=== PATIENT | female | born 1970 | race Caucasian/White ===

== ENCOUNTER → 2020-05-06 14:00 | Outpatient (CLI) | payer BC, SELFPAY ==
--- NOTE | ~2020-05-06 | MM_ITS ---
EXAMINATION: MM screening [facility] BI w justyn HISTORY: Screening mammogram TECHNIQUE: Craniocaudal and mediolateral oblique 3-D tomosynthesis images were obtained and synthetic 2-D images were generated. CAD analysis was submitted and interpreted. COMPARISON: 03/07/2018, 04/04/2017, 03/16/2017, 03/04/2017 BREAST PARENCHYMAL COMPOSITION: The breasts are heterogeneously dense, which may obscure small masses . FINDINGS: Biopsy markers are noted in the upper left breast. Bilateral breast masses are also seen wh ich have decreased in size, consistent with benign findings. Scattered benign-appearing calcification s are present. There is no evidence of suspicious mass, calcification, or architectural distortion to suggest malignancy in either breast. There has been no suspicious interval change. IMPRESSION: 1. No mammographic evidence of malignancy. 2. Recommend routine screening mammography in one year. BI-RADS Category 2: Benign finding(s). Reviewed, dictated and finalized at location A.
== END ==
PROVIDERS: PCP Internal Medicine; Visit Provider Nurse Practitioner Obstetrics & Gynecology
DX: Z12.31 Encounter for screening mammogram for malignant neoplasm of breast (principal)
CPT/HCPCS: 77063; 77067

== ENCOUNTER → 2021-06-15 15:15 | Outpatient (CLI) | payer BC, SELFPAY ==
--- NOTE | ~2021-06-15 | MM_ITS ---
EXAMINATION: MM screening [facility] BI w justyn HISTORY: Screening mammogram TECHNIQUE: Craniocaudal and mediolateral oblique 3-D tomosynthesis images were obtained and synthetic 2-D images were generated. CAD analysis was submitted and interpreted. COMPARISON: 05/06/2020, 03/07/2018 bilateral digital screening mammogram examinations BREAST PARENCHYMAL COMPOSITION: The breasts are heterogeneously dense, which may obscure small masses . FINDINGS: There are 2 biopsy markers on the left; history of prior bilateral benign breast biopsies. There are grouped microcalcifications in the posterior lower mid right breast. Diagnostic right mammo gram with magnification views is recommended. There are occasional scattered bilateral benign-appearing circumscribed opacities. IMPRESSION: 1. Grouped microcalcifications in the posterior mid lower right breast 2. Diagnostic right mammogram with magnification views is recommended BI-RADS Category 0: Incomplete: Needs additional imaging evaluation. Reviewed, dictated and finalized at location A. OLL BENEFITS ADMINISTRATOR
== END ==
PROVIDERS: Visit Provider Nurse Practitioner Obstetrics & Gynecology
DX: Z12.31 Encounter for screening mammogram for malignant neoplasm of breast (principal); R92.8 Other abnormal and inconclusive findings on diagnostic imaging of breast
CPT/HCPCS: 77063; 77067

== ENCOUNTER → 2021-07-20 09:48 | Outpatient (CLI) | payer BC, SELFPAY ==
--- NOTE | ~2021-07-20 | MMUS_ITS ---
EXAMINATION: MM diagnostic mammo unilat RT, US breast RT limited HISTORY: Right breast calcifications on screening mammogram TECHNIQUE: Additional mammographic images of the right breast were performed. CAD analysis was submit mary and interpreted. High resolution limited right breast ultrasound was performed. COMPARISON: 07/05/2021, 05/06/2020, 03/07/2018 BREAST PARENCHYMAL COMPOSITION: The breasts are heterogeneously dense, which may obscure small masses . FINDINGS: MAMMOGRAPHIC FINDINGS: There are grouped fine pleomorphic calcifications in the posterior third of the breast at the 6:00 lo cation 9.5 cm from the nipple just below the nipple axis. ULTRASOUND: There is no evidence of focal abnormal solid or cystic mass in the vicinity of the mammographic findi ng in question. IMPRESSION: 1. Indeterminate right breast calcifications. 2. Stereotactic biopsy is recommended. BI-RADS category 4, suspicious findings. Reviewed, dictated and finalized at location A. CONTROL SYSTEM INSTALLER IMPRESSION: 1. Indeterminate right breast calcifications. 2. Stereotactic biopsy is recommended. BI-RADS category 4, suspicious findings.
== END ==
PROVIDERS: Visit Provider Nurse Practitioner Obstetrics & Gynecology
DX: N63.15 Unspecified lump in the right breast, overlapping quadrants (principal)
CPT/HCPCS: 76642; 77065

== ENCOUNTER 2025-03-08 07:45 | Outpatient (CLI) | payer OTHER, SELFPAY ==
--- NOTE | ~2025-03-08 | XR_ITS ---
EXAMINATION: XR chest 2V Exam Date/Time: 03/08/2025 7:55 CDT HISTORY: R07.9 - Chest pain, unspecified Comparison: None. RESULT: Lines, tubes, and devices: None. Lungs and pleura: Clear. Cardiomediastinal silhouette: Normal. Other: No acute osseous or upper abdominal finding. IMPRESSION: No acute cardiopulmonary process. Reviewed, dictated and finalized at location K.
--- OUTSIDE RECORDS SUMMARY | 2025-03-08 07:48 | XMS_ITS | Clinical Summary ---
Author Organization [facility] [address] Address [address] [place] [address] Care Team Providers Care Coffee Sampler Name Role Phone Zachary Ortega MD Primary Care Provider [phone] Allergies No known active allergies Medications atorvastatin (LIPITOR) 20 mg tablet atorvastatin 20 mg tablet TAKE 1 TABLET BY MOUTH EVERY DAY Active citalopram (CeleXA) 40 mg tablet citalopram 40 mg tablet TAKE 1 TABLET BY MOUTH DAILY 8 Active clindamycin-brennen oyl peroxide (Onexton) 1.2 %(1 % base) -3.75 % gel Onexton 1.2 % (1 % base)-3.75 % topical gel with pump Active neomycin-polymyx in-HC (CORTISPORIN) otic solution INSTILL 4 DROPS INTO RIGHT EAR EVERY 6 HOURS 2 Active tretinoin microspheres (Retin-A Micro Pump) 0.08 % gel with pump Retin-A Micro Pump 0.08 % topical gel Active Active Problems No known active problems Family History Medical History Relation Name Comments No Known Problems Father No Known Problems Mother Relation Name Status Comments Father Mother Social History Tobacco Use Types Packs/Day Years Used Date Smoking Tobacco: Former Cigarettes Smokeless Tobacco: Never Tobacco Cessation:Counseling Given: Not Answered Personal Safety Answer Date Recorded Getting School Help Needed Not on file 08/13 Comments Unknown Sex and Gender Information Value Date Recorded Sex Assigned at Not on file Legal Sex Female 1:52 PM ADVERTISING WRITER Gender Identity Not on file Sexual Orientation Not on file Obstetrics History Last Filed Vital Signs Vital Sign Reading Time Taken Comments Blood Pressure - - Pulse - - Temperature - - Respiratory Rate 18 07/07/2022 3:25 PM ADVERTISING WRITER Oxygen Saturation - - Inhaled Oxygen Concentration - - Weight 54.4 kg (120 lb) 07/07/2022 3:25 PM ADVERTISING WRITER Height 157.5 cm (5' 2) 07/07/2022 3:25 PM ADVERTISING WRITER Body Mass Index 21.95 07/07/2022 3:25 PM ADVERTISING WRITER Plan of Treatment Health Maintenance Due Date Last Done Comments Breast Cancer Screening-Mammogram 1969 Cervical Cancer Screening 1969 Colon Cancer Screening-Colonoscopy 1969 Depression Screening 1969 Hepatitis C Screening 1969 DTaP/Tdap/Td Vaccine (1 - Tdap) 1980 Hepatitis B Screening 12/25/1987 Regular Well Visit/Exam 18-64 12/25/1987 Zoster Vaccine (1 of 2) 12/25/2019 Covid-19 Vaccine (3 - 2023-2 5 season) 2024 11/26/2020, 11/05/2020 Influenza Vaccine (#1) 2025 Pneumococcal vaccine <65 Aged Out No longer eligible based on patient's age to complete this topic Insurance [employer] Care Teams Coffee Sampler Relationship Specialty Start Date End Date Zachary Ortega MD [address] [facility] [address] [place] [address] PCP - General Internal Medicine 07/06/22
--- OUTSIDE RECORDS SUMMARY | 2025-03-08 07:48 | XMS_ITS | Encounter Summary ---
Author Organization [facility] Address [address] [place] [address] Care Team Providers Care Veneer Marker Name Role Phone Zachary Ortega DO Primary Care Provider Encounter Details Date Type Department Care Team (Latest Contact Info) Description 07/31/1999 Inpatient Historical HIS PATIENT IN A BED Radha Arreola MD [address] [place] [id number] Mild hyperemesis gravidarum, antepartum (Primary Dx) Social History Tobacco Use Types Packs/Day Years Used Date Smoking Tobacco: Never Assessed Comments Unknown Sex and Gender Information Value Date Recorded Sex Assigned at Not on file Legal Sex Female 3:00 AM CROP PRODUCTION ADVISOR Gender Identity Not on file Sexual Orientation Not on file documented as of this encounter Plan of Treatment Not on file documented as of this encounter Visit Diagnoses Diagnosis Mild hyperemesis gravidarum, antepartum- Primary documented in this encounter Care Teams Veneer Marker Relationship Specialty Start Date End Date Zachary Ortega DO [address] [place] [address] PCP - General Internal Medicine 12/28/17 documented as of this encounter
--- OUTSIDE RECORDS SUMMARY | 2025-03-08 07:48 | XMS_ITS | Referral Summary ---
Author Organization [address] Address [address] [place] [address] Care Team Providers Care Director Script Name Role Phone Zachary Ortega MD Primary Care Provider [phone] Allergies No known active allergies Medications atorvastatin [...] Active Active Problems No known active problems Social History Tobacco Use Types Packs/Day Years Used Date Smoking Tobacco: Former Cigarettes Smokeless Tobacco: Never Tobacco Cessation:Counseling Given: Not Answered Personal Safety Answer Date Recorded Getting School Help Needed Not on file 08/13 Comments Unknown Sex and Gender Information Value Date Recorded Sex Assigned at Not on file Legal Sex Female 1:52 PM TISSUE RECOVERY TECHNICIAN Gender Identity Not on file Sexual Orientation Not on file Last Filed Vital Signs Vital Sign Reading Time Taken Comments Blood Pressure - - Pulse - - Temperature - - Respiratory Rate 18 07/07/2022 3:25 PM TISSUE RECOVERY TECHNICIAN Oxygen Saturation - - Inhaled Oxygen Concentration - - Weight 54.4 kg (120 lb) 07/07/2022 3:25 PM TISSUE RECOVERY TECHNICIAN Height 157.5 cm (5' 2) 07/07/2022 3:25 PM TISSUE RECOVERY TECHNICIAN Body Mass Index 21.95 07/07/2022 3:25 PM TISSUE RECOVERY TECHNICIAN Plan of Treatment Not on file Insurance [employer] O[employer] Care Teams Director Script Relationship Specialty Start Date End Date Zachary Ortega MD [address] [place], [place] [id number] PCP - General Internal Medicine 07/06/22
--- OUTSIDE RECORDS SUMMARY | 2025-03-08 07:48 | XMS_ITS | Encounter Summary ---
Author Organization [facility] Address [address] [place] [address] Care Team Providers Care Food Writer Name Role Phone Jordan Zachary KELLY Primary Care Provider [phone] Encounter Details Date Type Department Care Team (Latest Contact Info) Description 03/18/2000 Inpatient Historical HIS PATIENT IN A BED Radha Arreola MD [address] [place] [id number] Secondary uterine inertia, with delivery (Primary Dx) Social History Tobacco Use Types Packs/Day Years Used Date Smoking Tobacco: Never Assessed Comments Unknown Sex and Gender Information Value Date Recorded Sex Assigned at Not on file Legal Sex Female 3:00 AM SOCIAL SCIENCE TEACHER Gender Identity Not on file Sexual Orientation Not on file documented as of this encounter Plan of Treatment Not on file documented as of this encounter Visit Diagnoses Diagnosis Secondary uterine inertia, with delivery- Primary documented in this encounter Care Teams Food Writer Relationship Specialty Start Date End Date Zachary Ortega DO [address] [place] [address] PCP - General Internal Medicine 12/28/17 documented as of this encounter
--- OUTSIDE RECORDS SUMMARY | 2025-03-08 07:48 | XMS_ITS | Clinical Summary ---
Author Organization [facility] Address [address] [place] [address] Care Team Providers Care Emt/Paramedic Name Role Phone Zachary Ortega DO Primary Care Provider [phone] Allergies No known active allergies Medications citalopram (CeleXA) 40 mg tablet TK 1 T PO QD 11 12/14/2017 Active Active Problems Problem Noted Date Diagnosed Date Fibroadenoma of breast, left 12/28/2017 Abnormal ultrasound of breast 12/28/2017 Social History Tobacco Use Types Packs/Day Years Used Date Smoking Tobacco: Never Smokeless Tobacco: Never Alcohol Use Standard Drinks/Week Comments Yes 0 (1 standard drink = 0.6 oz pur e alcohol) Ocassionally Comments No Sex and Gender Information Value Date Recorded Sex Assigned at Not on file Legal Sex Female 3:00 AM SKEIN YARD DRIER Gender Identity Not on file Sexual Orientation Not on file Last Filed Vital Signs Vital Sign Reading Time Taken Comments Blood Pressure 101/66 04/04/2018 10:40 AM CDT Pulse 67 04/04/2018 10:40 AM CDT Temperature 36.7 C (98.1 F) 04/04/2018 10:40 AM CDT Respiratory Rate - - Oxygen Saturation 98% 04/04/2018 10:40 AM CDT Inhaled Oxygen Concentration - - Weight 57.3 kg (126 lb 6.4 oz) 04/04/2018 10:40 AM CDT Height 157.5 cm (5' 2) 04/04/2018 10:40 AM CDT Body Mass Index 23.12 04/04/2018 10:40 AM CDT Plan of Treatment Health Maintenance Due Date Last Done Comments DTAP/TDAP/TD VACCINES (1 - Tdap) 1988 HEPATITIS B VACCINES (1 of 3 - 19+ 3-dose series) 12/06 HPV/Cotest (21-29) 1990 CERVICAL CANCER SCREENING 12/25/1999 HPV/Cotest (30-65) 12/25/1999 PAP SMEAR 12/25/1999 COLORECTAL SCREENING 2014 Colorectal Cancer Screening 2014 FIT-DNA Q 3 years 2014 FIT/FOBT Q 1 year 2014 Flex Sig/CT Colonography Q 5 years 2014 BREAST CANCER SCREENING 03/07/2019 03/07/2018 ZOSTER VACCINE (1 of 2) 12/25/2019 INFLUENZA VACCINE (#1) 2025 Procedures Procedure Name Priority Date/Time Associated Diagnosis Comments MAMMO SCREEN BILAT W OR WO CAD Routine 03/07/2018 Screening for breast cancer from Last 3 Months or Most Recently Relevant to Health Maintenance Results * MAMMO SCREEN BILAT W OR WO CAD (03/07/2018) Anatomical Region Laterality Modality Breast Bilateral Mammography Laverne Marcano DO MAMMO ORDERABLES Final Resu lt from Last 3 Months or Most Recently Relevant to Health Maintenance Insurance Care Teams Emt/Paramedic Relationship Specialty Start Date End Date Zachary Ortega DO [address] [facility] [address] [place] [address] PCP - General Internal Medicine 12/28/17
--- OUTSIDE RECORDS SUMMARY | 2025-03-08 07:48 | XMS_ITS | Encounter Summary ---
Author Organization [facility] Address [address] [place] [address] Care Team Providers Care Dust Control Engineer Name Role Phone Zachary Ortega DO Primary Care Provider [phone] Encounter Details Date Type Department Care Team (Latest Contact Info) Description 05/20/1999 Outpatient Historical HIS [facility] Arielle Mendenhall MD [address] [place] [phone] Unspecified high-risk (Primary Dx) Social History Tobacco Use Types Packs/Day Years Used Date Smoking Tobacco: Never Assessed Comments Unknown Sex and Gender Information Value Date Recorded Sex Assigned at Not on file Legal Sex Female 3:00 AM BOTANY TECHNICIAN Gender Identity Not on file Sexual Orientation Not on file documented as of this encounter Plan of Treatment Not on file documented as of this encounter Visit Diagnoses Diagnosis Unspecified high-risk - Primary documented in this encounter Care Teams Dust Control Engineer Relationship Specialty Start Date End Date Zachary Ortega DO [address] [place] [address] PCP - General Internal Medicine 12/28/17 documented as of this encounter
--- OUTSIDE RECORDS SUMMARY | 2025-03-08 07:48 | XMS_ITS | Encounter Summary ---
Author Organization [facility] Address [address] [place] [address] Care Team Providers Care Cotton Header Name Role Phone Zachary Ortega DO Primary Care Provider [phone] Encounter Details Date Type Department Care Team (Latest Contact Info) Description 03/17/2000 Outpatient Historical HIS OBSERVATION BED Radha Arreola MD [address] [place] [address] Other current maternal conditions classifiable elsewhere, antepartum (Primary Dx) Social History Tobacco Use Types Packs/Day Years Used Date Smoking Tobacco: Never Assessed Comments Unknown Sex and Gender Information Value Date Recorded Sex Assigned at Not on file Legal Sex Female 3:00 AM HEARING THERAPY DIRECTOR Gender Identity Not on file Sexual Orientation Not on file documented as of this encounter Plan of Treatment Not on file documented as of this encounter Visit Diagnoses Diagnosis Other current maternal conditions classifiable elsewhere, antepartum- Primary documented in this encounter Care Teams Cotton Header Relationship Specialty Start Date End Date Zachary Ortega DO [address] [place] [address] PCP - General Internal Medicine 12/28/17 documented as of this encounter
--- OUTSIDE RECORDS SUMMARY | 2025-03-08 07:48 | XMS_ITS | Clinical Summary ---
Author Organization [facility] Address [address] [place] [address] Care Team Providers Care Software Sales Consultant Name Role Phone Yeni Walsh APRN-GALILEO Unavailable Paty Moran MD Unavailable [phone] Zachary Ortega DO Primary Care Provider [phone] Source Comments [facility],non-owned Affiliates and Associated Physician Practices is amultiple site organization consisting of ambulatory clinics and hospital sitesin [place], [place], [place] and [place]. This disclosure is being madepursuant to the Care Everywhere program and may not contain all information available regarding this patient. Last updated 18.[facility] Allergies No known active allergies Medications * Be aware that medications may not be up to date on this document. Alwaysverify current medications with the patient. atorvastatin (LIPITOR) 20 MG tablet atorvastatin 20 mg tablet TAKE 1 TABLET BY MOUTH EVERY DAY Active citalopram (CELEXA) 40 MG tablet citalopram 40 mg tablet TAKE 1 TABLET BY MOUTH DAILY Active clindamycin-gael zoyl peroxide (ONEXTON) 1.2-3.75 % gel Onexton 1.2 % (1 % base)-3.75 % topical gel with pump Active Tretinoin Microsphere (RETIN-A MICRO PUMP) 0.08 % Retin-A Micro Pump 0.08 % topical gel Active Active Problems No known active problems Family History Medical History Relation Name Comments Diabetes; unknown type Father Cancer - Breast Paternal Aunt 1 Cancer - Breast Paternal Aunt 2 Cancer - Uterine Paternal Grandmother Relation Name Status Comments Father Alive Maternal Grandmother Mother Alive Paternal Aunt 1 Paternal Aunt 2 Alive Paternal Grandmother Social History Tobacco Use Types Packs/Day Years Used Date Smoking Tobacco: Former Smokeless Tobacco: Never Alcohol Use Standard Drinks/Week Comments Yes 0 (1 standard drink = 0.6 oz pur e alcohol) Socially Comments No Sex and Gender Information Value Date Recorded Sex Assigned at Not on file Legal Sex Female 3:50 PM JAVA SYBASE DEVELOPER Gender Identity Not on file Sexual Orientation Not on file Last Filed Vital Signs Vital Sign Reading Time Taken Comments Blood Pressure 103/63 09/03/2021 9:10 AM JAVA SYBASE DEVELOPER Pulse 65 09/03/2021 9:10 AM JAVA SYBASE DEVELOPER Temperature 36.5 C (97.7 F) 09/03/2021 9:10 AM JAVA SYBASE DEVELOPER Respiratory Rate 20 09/03/2021 9:10 AM JAVA SYBASE DEVELOPER Oxygen Saturation - - Inhaled Oxygen Concentration - - Weight 53.5 kg (118 lb) 07/12/2024 9:00 AM JAVA SYBASE DEVELOPER Height 157.5 cm (5' 2) 07/12/2024 9:00 AM JAVA SYBASE DEVELOPER Body Mass Index 21.58 07/12/2024 9:00 AM JAVA SYBASE DEVELOPER Plan of Treatment Health Maintenance Due Date Last Done Comments COLON MONITORING 1969 COLONOSCOPY - COLON CA SCREENING 1969 CT COLONOGRAPHY - COLON CA SCREENING 1969 FIT - COLON CA SCREENING 1969 FLEX SIG - COLON CA SCREENING 1969 HIV SCREENING 1984 HEPATITIS C SCREENING 12/20/1987 DTAP/TDAP/TD VACCINES (1 - Tdap) 1988 HEPATITIS B VACCINE (1 of 3 - 19+ 3-dose series) 1988 PNEUMOCOCCAL VACCINE 50+ (1 of 1 - PCV) 12/25/2019 ZOSTER VACCINE (1 of 2) 12/25/2019 COVID-19 VACCINE ( - season) 2024 DEPRESSION SCREENING 08/07/2024 INFLUENZA VACCINE (#1) 2025 PAP SMEAR 11/21/2025 11/21/2022, 11/05, 04/15/2021, Additional history exists MAMMOGRAM 07/12/2026 07/12/2024, 06/08, 06/28/2022, Additional history exists COLOGUARD (AGES 45-75) - COLON CA SCREENING 07/03/2027 07/03/2024 Colorectal Cancer Screening 07/03/2027 HIB VACCINE Aged Out No longer eligi ble based on patient's age to complete this topic HPV VACCINE Aged Out No longer eligi ble based on patient's age to complete this topic MENINGOCOCCAL (Group B) VACCINE SHARED DECISION-MAKING Aged Out No longer eligible based on patient's age to complete this topic MENINGOCOCCAL GROUPS A/C/Y/W VACCINE Aged Out No longer eligible based on patient's age to complete this topic Procedures Procedure Name Priority Date/Time Associated Diagnosis Comments MAMMO BILAT SCREENING W YUNG Routine 07/12/2024 9:02 AM JAVA SYBASE DEVELOPER Screening mammogram for breast cancer from Last 3 Months or Most Recently Relevant to Health Maintenance Results * Mammo Bilat Screening W Yung (07/12/2024 9:02 AM JAVA SYBASE DEVELOPER) Anatomical Region Laterality Modality Breast Bilateral Mammography 07/12/2024 9:07 AM JAVA SYBASE DEVELOPER Impressions 07/12/2024 9:11 AM JAVA SYBASE DEVELOPER IMPRESSION: No mammographic evidence of malignancy in either breast. ASSESSMENT: BIRADS Category 1: Negative mammogram. RECOMMENDATION: Bilateral screening mammogram in one year. Thank you for allowing us to participate in the care of your patient. [facility] utilizes [employer] as a reminder system to notify patients of their next recommended mammogram. > Interpreting Provider: Noreen Hand MD on 07/12/2024 9:11 AM Narrative 07/12/2024 9:11 AM JAVA SYBASE DEVELOPER EXAMINATION: Digital screening mammogram. Low-dose full-field digital breast tomosynthesis examination was performed with synthetic 2D images. Computer assisted detection was utilized. DATE: 07/12/2024 9:03 AM PRIOR: 07/05/2023 and prior mammograms dating back to 2019. BREAST PARENCHYMAL DENSITY: The breasts are heterogeneously dense, which may obscure small masses. FINDINGS: No suspicious masses, areas of architectural distortion or microcalcifications are evident on synthetic 2D mammogram or tomosynthesis images. There has been no significant interval change since the prior examination. Paty Moran MD MAMMO ORDERABLES Final Result from Last 3 Months or Most Recently Relevant to Health Maintenance Insurance [facility] Care Teams Software Sales Consultant Relationship Specialty Start Date End Date Zachary Ortega DO [address] [facility] [facility] [address] [place], [place] [phone] PCP - General Internal Medicine 08/12/21 Yeni Walsh, MANIFEST/ORDER ORGANIZER PRINT ORDERS-ELECTRIC MOTOR TESTER [address] [place] [address] Nurse Practitioner 07/27/21 Paty Moran MD [address] [address] Surgical Oncologist General Surgery 07/27/21
== END 2025-03-08 07:46 | disposition home or self-care (01) ==
PROVIDERS: PCP Internal Medicine; Visit Provider Internal Medicine
DX: R07.9 Chest pain, unspecified (principal)
CPT/HCPCS: 71046